=== PATIENT | female | born 1980 | race Caucasian/White ===

== ENCOUNTER 2017-02-14 18:09 | Emergency (ER) | payer OTHER ==
[~2017-02-14] VITALS: Ht 152.4 cm; Wt 78.6 kg
[2017-02-14 20:04] VITALS: BP 144/75
== END 2017-02-14 20:04 | disposition home or self-care (01) ==
LOC: ED 18:09
DX: K59.00 Constipation, unspecified (principal); M54.5 Low back pain; Z79.899 Other long term (current) drug therapy; Z88.5 Allergy status to narcotic agent; Z86.32 Personal history of gestational diabetes

== ENCOUNTER 2017-03-04 22:24 | Emergency (ER) | payer OTHER ==
[2017-03-05 01:19] VITALS: BP 159/118
== END 2017-03-05 01:19 | disposition left against medical advice (07) ==
LOC: ED 22:24
DX: Z53.21 Procedure and treatment not carried out due to patient leaving prior to being seen by health care provider (principal)

== ENCOUNTER 2017-09-24 14:21 | Emergency (ER) | payer OTHER ==
[~2017-09-24] VITALS: Ht 154.9 cm; Wt 83.5 kg
[2017-09-24 14:35] VITALS: BP 123/85
[2017-09-24 16:40] LABS: BASOPHIL % 0.5 % (0-2); PLATELET COUNT 259 x10^3mcL (130-400)
[2017-09-24 16:46] LABS: RED CELL DISTRIBUTION WIDTH 19.9 % (11.5-14.5)
== END 2017-09-24 17:12 | disposition home or self-care (01) ==
LOC: ED 14:21
PROVIDERS: Emergency Medicine
DX: O23.41 Unspecified infection of urinary tract in pregnancy, first trimester (principal); Z3A.00 Weeks of gestation of pregnancy not specified; Z88.5 Allergy status to narcotic agent
CPT/HCPCS: 36415

== ENCOUNTER 2017-10-11 16:17 | Emergency (ER) | payer OTHER ==
[~2017-10-11] VITALS: Ht 157.5 cm; Wt 85.9 kg
[2017-10-11 16:45] VITALS: Ht 157.5 cm; Wt 85.9 kg
[2017-10-11 21:32] LABS: microscopic required? NO
[2017-10-11 21:54] LABS: UA SPECIFIC GRAVITY 1.025 (1.005-1.035); urine erythrocyte NEGATIVE (NEGATIVE)
[2017-10-11 22:08] LABS: BASOPHIL % 0.4 % (0-2); PLATELET COUNT 257 x10^3mcL (130-400)
[2017-10-11 22:15] LABS: RED CELL DISTRIBUTION WIDTH 22.8 % (11.5-14.5)
[2017-10-11 22:30] LABS: rbc morphology (normal/abnorm) ABNORMAL (NORMAL)
[2017-10-11 23:38] VITALS: BP 127/85
== END 2017-10-11 23:38 | disposition home or self-care (01) ==
LOC: ED 16:17
PROVIDERS: Emergency Medicine
DX: O20.0 Threatened abortion (principal); Z3A.01 Less than 8 weeks gestation of pregnancy; Z88.5 Allergy status to narcotic agent
CPT/HCPCS: 36415

== ENCOUNTER 2018-08-12 18:26 | Emergency (ER) | payer OTHER ==
[~2018-08-12] VITALS: Ht 157.5 cm; Wt 80.8 kg
[2018-08-12 18:31] VITALS: Ht 157.5 cm; Wt 80.8 kg
[2018-08-12 19:40] VITALS: BP 108/63
== END 2018-08-12 19:40 | disposition home or self-care (01) ==
LOC: ED 18:26
DX: O26.891 Other specified pregnancy related conditions, first trimester (principal); M54.9 Dorsalgia, unspecified; R30.0 Dysuria; R10.30 Lower abdominal pain, unspecified; O99.331 Smoking (tobacco) complicating pregnancy, first trimester; F17.210 Nicotine dependence, cigarettes, uncomplicated; O99.341 Other mental disorders complicating pregnancy, first trimester; F32.9 Major depressive disorder, single episode, unspecified; Z3A.01 Less than 8 weeks gestation of pregnancy; Z98.890 Other specified postprocedural states; Z88.5 Allergy status to narcotic agent
CPT/HCPCS: 99406

== ENCOUNTER 2018-08-26 16:00 | Emergency (ER) | payer OTHER ==
[~2018-08-26] VITALS: Ht 157.5 cm; Wt 81.6 kg
[2018-08-26 16:03] VITALS: Ht 157.5 cm; Wt 81.6 kg
[2018-08-26 16:54] LABS: BASOPHIL % 0.3 % (0-2); PLATELET COUNT 196 x10^3mcL (130-400)
[2018-08-26 17:02] LABS: RED CELL DISTRIBUTION WIDTH 35.8 % (11.5-14.5)
[2018-08-26 17:32] LABS: rbc morphology (normal/abnorm) ABNORMAL (NORMAL)
[2018-08-26 17:35] LABS: ovalocyte/elliptocyte 1+
[2018-08-26 17:36] VITALS: BP 105/58
== END 2018-08-26 17:36 | disposition home or self-care (01) ==
LOC: ED 16:00
PROVIDERS: Emergency Medicine
DX: O20.0 Threatened abortion (principal); Z3A.01 Less than 8 weeks gestation of pregnancy; F32.9 Major depressive disorder, single episode, unspecified; G56.00 Carpal tunnel syndrome, unspecified upper limb; Z88.5 Allergy status to narcotic agent; Z98.890 Other specified postprocedural states
CPT/HCPCS: 36415